=== PATIENT | female | born 1955 | race Caucasian/White ===

== ENCOUNTER 2018-03-04 11:34 | Emergency (ER) | payer MEDICARE ==
[~2018-03-04] VITALS: Ht 154.9 cm; Wt 81.8 kg
[~2018-03-04 11:34] MED LIST: LISINOP/HCTZ1 TA2 PO
[2018-03-04] MEDS ORDERED: LEVOTHYROXIN50 MCG PO (11:50)
[2018-03-04] MEDS ORDERED: ATORVASTATIN CA10 MG PO (11:51)
[2018-03-04] MEDS ORDERED: HYDROCHLOROT25 MG PO (11:51)
[2018-03-04] MEDS ORDERED: LOSARTAN POT25 MG PO (11:51)
[2018-03-04] MEDS ORDERED: AMLODIPINE2.5 MG PO (11:51)
[2018-03-04] MEDS ORDERED: SYNTHROID88 MCG PO (12:38)
[2018-03-04] MEDS ORDERED: HYZAAR1 TA2 PO (12:39)
[2018-03-04] MEDS ORDERED: AMLODIPINE BESYL5 MG PO (12:39)
[2018-03-04] MEDS ORDERED: ATORVASTATIN CA40 MG PO (12:40)
[2018-03-04] MEDS ORDERED: VOLTAREN - GENE75 MG PO (12:57)
[2018-03-04 13:00] VITALS: BP 131/74
== END 2018-03-04 13:00 | disposition home or self-care (01) ==
LOC: ED 11:34
DX: S93.602A Unspecified sprain of left foot, initial encounter (principal); I10 Essential (primary) hypertension; F17.200 Nicotine dependence, unspecified, uncomplicated; X58.XXXA Exposure to other specified factors, initial encounter

== ENCOUNTER 2018-11-27 09:18 | Day surgery (SDC) | payer MEDICARE ==
[~2018-11-27] VITALS: Ht 152.4 cm; Wt 84.3 kg
[~2018-11-27 09:18] MED LIST changes: +AMLODIPINE BESYL5 MG PO; +AMLODIPINE2.5 MG PO; +ATORVASTATIN CA10 MG PO; +ATORVASTATIN CA40 MG PO; +HYDROCHLOROT25 MG PO; +HYZAAR1 TA2 PO; +LEVOTHYROXIN50 MCG PO; +LOSARTAN POT25 MG PO; +METOPROL TAR25 M1 PO; +SYNTHROID88 MCG PO; +VOLTAREN - GENE75 MG PO
[2018-11-27] MEDS ORDERED: MULTI VIT PO (09:46)
[2018-11-27 12:51] VITALS: BP 151/66
== END 2018-11-27 13:05 | disposition home or self-care (01) ==
LOC: ENDO 09:18
PROVIDERS: ATTEND Internal Medicine Gastroenterology
PROC: 0DBM8ZX Excision of Descending Colon, Via Natural or Artificial Opening Endoscopic, Diagnostic (ICD-10-PCS; principal; 2018-11-27)
PROC: 0DBL8ZX Excision of Transverse Colon, Via Natural or Artificial Opening Endoscopic, Diagnostic (ICD-10-PCS; 2018-11-27)
PROC: 0DBN8ZX Excision of Sigmoid Colon, Via Natural or Artificial Opening Endoscopic, Diagnostic (ICD-10-PCS; 2018-11-27)
DX: Z12.11 Encounter for screening for malignant neoplasm of colon (principal); D12.2 Benign neoplasm of ascending colon; D12.4 Benign neoplasm of descending colon; D12.3 Benign neoplasm of transverse colon; D12.5 Benign neoplasm of sigmoid colon; K63.5 Polyp of colon; K57.30 Diverticulosis of large intestine without perforation or abscess without bleeding; K64.4 Residual hemorrhoidal skin tags

== ENCOUNTER 2019-06-19 06:13 | Inpatient (IN) | payer MEDICARE ==
[~2019-06-19] VITALS: Ht 152.4 cm; Wt 91.6 kg
[~2019-06-19 06:13] MED LIST changes: +MULTI VIT PO
--- NOTE | 2019-06-19 06:16 | NUR ---
PATIENT TO ROOM 9 VIA WHEELCHAIR. UNDRESSED INTO A GOWN, PLACED ON MONITOR. PATIENT O2 SAT 87% ON RA. PLACED ON SOME O2 VIA NC. TRIAGE COMPLETED AT BEDSIDE.
--- NOTE | 2019-06-19 07:10 | NUR ---
PT CONVERSIVE AND PLEASANT MAINTAING O2 SAT ON O2@2LPM VIA NC. SKIN PWD. NEB TX IN PROGRESS, PT TOLERATING WELL. VSS. UPDATED ON POC.
[2019-06-19 07:37] LABS: HEMATOCRIT 42.6 % (37.0-47.0); HEMOGLOBIN 14.2 g/dl (12.0-16.0); IMMATURE GRANULOCYTES 0.2 % (0.0-5.0); MEAN CELL VOLUME 97.3 fL CALC (80.0-100.0); MEAN CORPUSCULAR HGB 32.4 pG CALC (26.0-32.0); MEAN CORPUSCULAR HGB CONC 33.3 g/L CALC (32.0-36.0); NEUT# 5.58 thou/uL (2.00-7.15); RED BLOOD COUNT 4.38 mill/uL (4.20-5.60); RED CELL DISTRI WIDTH 13.2 % (11.5-15.5)
[2019-06-19 07:50] LABS: ALKALINE PHOSPHATASE 65 u/l (38-126); BILIRUBIN, TOTAL 0.5 mg/dL (0.0-1.4); BUN 10 mg/dL (8-23); BUN/CREATININE RATIO 20 (12-20 (CALC)); CARBON DIOXIDE 25 mmol/l (22-30); CREATININE 0.5 mg/dL (0.5-1.0); GFR > 60 ML/MIN (>=60 (CALC)); GFR FOR AFR.AMER. > 60 ML/MIN (>=60 (CALC)); POTASSIUM 3.5 mmol/l (3.5-5.1); TOTAL PROTEIN 7.3 g/dL (6.3-8.2)
[2019-06-19 07:52] LABS: ALBUMIN 3.9 g/dL (3.2-5.0); ANION GAP 12 (6-22 (CALC)); CHLORIDE 93 mmol/l (95-108); SGOT/AST 62 u/l (9-36); SODIUM 126 mmol/l (137-146)
[2019-06-19] MEDS ORDERED: VITAMIN D32000 UNIT PO (08:04)
[2019-06-19] MEDS ORDERED: CALCIUM600 M3 PO (08:05)
[2019-06-19 08:12] LABS: MYOGLOBIN 136 ng/mL (0 - 62)
--- NOTE | 2019-06-19 08:30 | NUR ---
IV FLUIDS AND ABT INFUSING WELL. PT IN NO RESP DISTRESS. TOELRATING WELL
--- NOTE | 2019-06-19 09:50 | NUR ---
PT UPDATED ON WAIT TIME FOR TRANSPORT. ASSISTED TP TTO REPOSITION IN BED, O2 SAT 96% ON O2@3LPM VIA NC
--- NOTE | 2019-06-19 09:55 | NUR ---
PT TRANSPORTED TO ME VIA STRETCHER ON AND TELEMETRY IN NO DISRTESS
--- NOTE | 2019-06-19 09:56 | NUR ---
CALLED REPORT TO SHANKAR RICHMOND MS2
--- NOTE | 2019-06-19 10:06 | NUR ---
RECEIVED INTO ROOM 278 FROM ER VIA STRETCHER. PATIENT ON DROPLET PRECAUTIONS FOR TESTING POSITIVE FOR INFLUENZA A. PATIENT AMBULATED TO STANDING SCALE FOR ADMISSION WEIGHT AND THEN TO BED. STABLE STANCE AND GAIT OBSERVED. ORIENTED TO SURROUNDINGS. EXPLAINED USE OF CALL [place], TV AND BED CONTROLS. DISCUSSED PLAN OF CARE, FALL PRECAUTIONS AND NECESSITY OF DROPLET PRECAUTIONS. PATIENT VERBALIZES UNDERSTANDING OF TEACHING. CALL [place] IN REACH.
[2019-06-19 10:20] VITALS: BP 169/72
--- NOTE | 2019-06-19 10:30 | NUR ---
ADMISSION ASSESSMENT COMPLETED. RESP NON-LABORED AT REST, [place]. MOIST NON-PRODUCTIVE COUGH PRESENT. BREATH SOUNDS COARSE WITH WHEEZES. SALINE LOCK IN RH, SITE BENIGN. TELEMTRY SHOWS SR PER ED MONITORING.
--- NOTE | 2019-06-19 12:00 | NUR ---
UP AND ABOUT IN ROOM. TOLERATES ACTIVITY WELL. VOIDED CLEAR YELLOW URINE.
[2019-06-19 14:30] LABS: URINE BILIRUBIN - DIPSTICK NEGATIVE (NEGATIVE); URINE BLOOD DIPSTICK SMALL (NEGATIVE); URINE CLARITY CLEAR; URINE COLOR YELLOW; URINE GLUCOSE - DIPSTICK NEGATIVE (NEGATIVE); URINE KETONE 15 mg/dL (NEGATIVE); URINE LEUK ESTERASE NEGATIVE (Negative); URINE NITRITE - DIPSTICK NEGATIVE (Negative); URINE PROTEIN - DIPSTICK NEGATIVE (NEG-TRACE); URINE SPECIFIC GRAVITY 1.015; URINE UROBILINOGEN - DIPSTICK 0.2 E.U./dL (0.2)
--- NOTE | 2019-06-19 14:50 | NUR ---
NS STARTED AT 60 ML/HR TO RH IV SITE.
--- NOTE | 2019-06-19 16:00 | NUR ---
PATIENT UP AND ABOUT IN ROOM. GAIT STEADY. PATIENT TAKES O2 ON AND OFF. RESP NON-LABOED AT REST.
[2019-06-19 16:18] VITALS: BP 140/70
--- NOTE | 2019-06-19 18:00 | NUR ---
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
[2019-06-19 19:11] VITALS: BP 163/68
--- NOTE | 2019-06-19 20:00 | NUR ---
YPATIENT RESTING IN BED AT THIS TIME WITH HOB ELEVATED.O2 VIA NASAL CANNULA IN PLACE. PATIENT WITH NON-PRODUCTIVE COUGH. AWAKE ALERT AND ORIENTEDX3. IV SITE TO RIGHT HAND LEAKING AND REDRESSED. IVF NS PATENT AND INFUSING AT 60CC/HR VIA RIGHT HAND. TELE MONITOR IN PLACE. VOIDING QS IN BR. SAFETY PRECAUTIONS REINFORCED. CALL LIGHT IN REACH. WILL CONT TO MONITOR.PATIENT ON DROPLET PRECAUTIONS FOR INFLUENZA A.
[2019-06-19 20:03] LABS: URINE SQUAMOUS EPITHELIAL CELL FEW EPI/hpf (0-FEW)
[2019-06-19 20:16] LABS: TSH, 3RD GENERATION 0.05 uIU/mL (0.47 - 4.68)
[2019-06-19 23:25] VITALS: BP 180/85
--- NOTE | 2019-06-19 23:45 | NUR ---
PATIENT STILL AWAKE AT THIS ITME WITH HOB ELEVATED AND O2 VIA NASAL CANNULA IN PLACE. NOT MUCH RELIEF FROM COUGH MED GIVEN EARLIER. IVF PATENT AND INFUSING AT 60CC/HR VIA RIGHT HAND SITE-SITE REMAINS HEALTHY. BP-ELEVATED AT 180/85,HR-71. MEDICATED WITH APRESOLINE 10MG IVP FOR HTN. DROPLET PRECAUTIONS MAINTAINED. SAFETY PRECAUTIONS REINFORCED. CALL LIGHT IN REACH. WILL CONT TO MONITOR.
[2019-06-20] VITALS (7 sets, daily range): BP systolic 134–169; BP diastolic 60–84
--- NOTE | 2019-06-20 04:00 | NUR ---
PATIENT APPEARS SLEEPING AT THIS TIME WITH O2 VIA NASAL CANNULA IN PLACE. HOB ELEVATED. RESP ARE EVEN AND UNLABORED. IVF PATENT AND INFUSING VIA RIGHT HAND AT 60. CALL IGHT IN REACH. WILL CONT TO MONITOR.
--- NOTE | 2019-06-20 08:05 | NUR ---
PT IS SITTING IN THE SIDE OF THE BED. IN ROOM. ASSESSMENT DONE. TELE IN PLACE. PT DENIES NEEDS AT THIS TIME. IVF INFUSING WELL. CALL LIGHT IN REACH.
--- NOTE | 2019-06-20 12:01 | NUR ---
PT IS SITTING IN THE SIDE OF THE BED EATING HER LUNCH. PT DENIES NEEDS AT THIS TIME. CALL LIGHT IN REACH.
[2019-06-20 14:39] LABS: ANION GAP 14 (6-22 (CALC)); BUN 16 mg/dL (8-23); BUN/CREATININE RATIO 25 (12-20 (CALC)); CARBON DIOXIDE 22 mmol/l (22-30); CHLORIDE 103 mmol/l (95-108); CREATININE 0.6 mg/dL (0.5-1.0); GFR > 60 ML/MIN (>=60 (CALC)); GFR FOR AFR.AMER. > 60 ML/MIN (>=60 (CALC)); POTASSIUM 3.6 mmol/l (3.5-5.1)
[2019-06-20 14:40] LABS: SODIUM 135 mmol/l (137-146)
--- NOTE | 2019-06-20 16:01 | NUR ---
PT IS RESTING IN BED. PO FLUIDS PROVIDED . PT DENIES ANY OTHER NEEDS AT THIS TIME. CALL LIGHT IN REACH.
--- NOTE | 2019-06-20 19:30 | NUR ---
PATIENT SITTING UP IN BED AT THIS TIME WITH O2 OFF AND O2 SAT OF 96%. PATIENT AWAKE ALERT AND ORIENTED. CONT TO HAVE NON-PRODUCTIE COUGH. CONT ON DROPLET PRECAUTIONS FOR INFLUENZA A. TELE MONITOR IN PLACE. IVF NS PATENT AND INFUSING VIA RIGHT HAND SITE AT 60CC/HR. SITE IS HEALTHY AT THIS TIME. SAFETY PRECAUTIONS REINFORCED. CALL LIGHT IN REACH. WILL CONT TO MONITOR.
--- NOTE | 2019-06-21 | NUR ---
PATIENT RESTING IN BED-EYES CLOSED AND APPEARS SLEEPING. RESP ARE EVEN AND UNLABORED. TELE MONITOR IN PLACE. DROPET PRECAUTIONS MAINTAINED. IVF PATENT AND INFUSING VIA RIGHT HAND SITE. CALL LIGHT IN REACH. WILL CONT TO MONITOR.
--- NOTE | 2019-06-21 04:00 | NUR ---
PATIENT RESTING IN BED-POSITONED ON HER SIDE WITH EYES CLOSED. RESP ARE EVEN AND UNLABORED. STILL WITH [place]-PRODUCTIVE COUGH. TELE MONITOR IN PLACE. IVF NS PATENT AND INFUSING AT 60CC/HR. CALL LIGHT IN REACH, WILL CONT TO MONITOR.
[2019-06-21 04:05] VITALS: BP 166/75
[2019-06-21 05:21] LABS: HEMATOCRIT 39.8 % (37.0-47.0); HEMOGLOBIN 13.4 g/dl (12.0-16.0); IMMATURE GRANULOCYTES 0.6 % (0.0-5.0); MEAN CELL VOLUME 97.3 fL CALC (80.0-100.0); MEAN CORPUSCULAR HGB 32.8 pG CALC (26.0-32.0); MEAN CORPUSCULAR HGB CONC 33.7 g/L CALC (32.0-36.0); NEUT# 14.63 thou/uL (2.00-7.15); RED BLOOD COUNT 4.09 mill/uL (4.20-5.60); RED CELL DISTRI WIDTH 13.5 % (11.5-15.5)
[2019-06-21 05:53] LABS: ALKALINE PHOSPHATASE 56 u/l (38-126); ANION GAP 11 (6-22 (CALC)); BILIRUBIN, TOTAL 0.3 mg/dL (0.0-1.4); BUN 15 mg/dL (8-23); BUN/CREATININE RATIO 36 (12-20 (CALC)); CARBON DIOXIDE 23 mmol/l (22-30); CHLORIDE 105 mmol/l (95-108); CREATININE 0.4 mg/dL (0.5-1.0); GFR > 60 ML/MIN (>=60 (CALC)); GFR FOR AFR.AMER. > 60 ML/MIN (>=60 (CALC)); POTASSIUM 3.8 mmol/l (3.5-5.1); SGOT/AST 59 u/l (9-36); SODIUM 136 mmol/l (137-146)
[2019-06-21 06:13] LABS: ALBUMIN 3.1 g/dL (3.2-5.0)
[2019-06-21 07:54] VITALS: BP 161/76
--- NOTE | 2019-06-21 09:00 | NUR ---
PT AWAKE, ALERT, ORIENTED X 3. LUNGS CLEAR, RA. BM TODAY. DROPLET PRECAUTIONS MAINTAINED PER INFLUENZA POSITIVE. VSS.
[2019-06-21 11:00] VITALS: BP 136/61
--- NOTE | 2019-06-21 12:10 | NUR ---
PT REMAINS BEFORE, NO EVIDENCE OF DISTRESS, NO SHORTNESS OF BREATH PER PNEUMONIA.
[2019-06-21] MEDS ORDERED: PREDNISONE10 MG PO (12:26)
[2019-06-21] MEDS ORDERED: LEVAQUIN750 MG PO (12:26)
[2019-06-21] MEDS ORDERED: TAM75CAP PO (12:26)
--- NOTE | 2019-06-21 13:00 | NUR ---
PT HAS BEEN DISCHARGED TO HOME. PT VERBALIZED UNDERSTANDING OF DC INSTRUCTIONS, TAKEN BY WHEELCHAIR TO LOBBY. PT LEAVES [facility] IN STABLE CONDITION.
== END 2019-06-21 13:10 | disposition home or self-care (01) | DRG 194 ==
LOC: ED 06:13 → ED-I 08:30 → ED 09:06 → MS2 09:07
PROVIDERS: Emergency Medicine; Family Medicine; Nurse Practitioner Family; ADMIT Internal Medicine; ATTEND Internal Medicine
PROC: 3E0234Z Introduction of Serum, Toxoid and Vaccine into Muscle, Percutaneous Approach (ICD-10-PCS; principal; 2019-06-21)
DX: J10.00 Influenza due to other identified influenza virus with unspecified type of pneumonia (principal); J44.1 Chronic obstructive pulmonary disease with (acute) exacerbation; E87.1 Hypo-osmolality and hyponatremia; I16.0 Hypertensive urgency; I10 Essential (primary) hypertension; E03.9 Hypothyroidism, unspecified; F17.210 Nicotine dependence, cigarettes, uncomplicated; M19.90 Unspecified osteoarthritis, unspecified site; Z23 Encounter for immunization
CPT/HCPCS: J1650

== ENCOUNTER 2024-08-03 07:08 | Day surgery (SDC) | payer MEDICARE ==
[~2024-08-03] VITALS: Ht 152.4 cm; Wt 104.3 kg
[~2024-08-03 07:08] MED LIST changes: +CALCIUM600 M1 PO; +CALCIUM600 M3 PO; +CVS OMEPRAZOLE20 MG PO; +IBANDRONATE SO150 MG PO; +LEVAQUIN750 MG PO; +NORVASC PO; +PREDNISONE10 MG PO; +TAM75CAP PO; +VITAMIN D32000 UNIT PO
[2024-08-03] MEDS ORDERED: SODIUM CHLORIDE 0.9% 1,000 ML IV ONE (07:17)
[2024-08-03] MEDS ORDERED: FAMOTIDINE 10MG/ML 2ML SDV IV ONE (07:17)
[2024-08-03 09:42] VITALS: BP 140/82
[2024-08-03] MEDS ORDERED: GLYCOPYRROLATE 0.2 MG/ML IV ONE (12:02)
[2024-08-03] MEDS ORDERED: LIDOCAINE HCL 2% 2ML SDV IV ONE (12:02)
[2024-08-03] MEDS ORDERED: PROPOFOL 200 MG/20 ML VIAL IV ONE (12:02)
== END 2024-08-03 10:00 | disposition home or self-care (01) ==
LOC: ORM 07:08
PROVIDERS: ATTEND Surgery
PROC: 0DBM8ZX Excision of Descending Colon, Via Natural or Artificial Opening Endoscopic, Diagnostic (ICD-10-PCS; principal; 2024-08-03)
PROC: 0DBN8ZX Excision of Sigmoid Colon, Via Natural or Artificial Opening Endoscopic, Diagnostic (ICD-10-PCS; 2024-08-03)
DX: Z12.11 Encounter for screening for malignant neoplasm of colon (principal); D12.4 Benign neoplasm of descending colon; D12.5 Benign neoplasm of sigmoid colon; K57.30 Diverticulosis of large intestine without perforation or abscess without bleeding; K64.8 Other hemorrhoids; C55 Malignant neoplasm of uterus, part unspecified; I10 Essential (primary) hypertension; E11.9 Type 2 diabetes mellitus without complications; Z86.0100 Personal history of colon polyps, unspecified; Z90.710 Acquired absence of both cervix and uterus; Z90.79 Acquired absence of other genital organ(s); Z90.722 Acquired absence of ovaries, bilateral
CPT/HCPCS: J1596